=== PATIENT | female | born 1975 | race Caucasian/White ===

== ENCOUNTER 2023-02-06 18:33 | Emergency (ER) | payer MEDICAID, SELFPAY ==
[2023-02-06 18:37] VITALS: BP 156/85; PULSE 92; RESP 18; TEMP 36.8; O2SAT 98; BMI 48.8
--- NOTE | 2023-02-06 18:42 | XR_ITS ---
The [address] [address] Patient Name: ELIZABETH TRUJILLO MRN: [id number] date: 1975 Sex: F Assigned Patient Location: ER Current Patient Location: ED.MAIN Accession/Order Number: [id number] Exam Date: 02/06/2023 18:50 Report Date: 02/06/2023 19:11 At the request of: MARCO ZEE Procedure: XR ankle RT min 3V EXAM: XR ankle RT min 3V HISTORY: Twisted ankle COMPARISON: None. TECHNIQUE: 3 views FINDINGS: No visualized fracture, dislocation, subluxation or osseous lesion. Patient is obese. No gross soft tissue edema. Small osteophytes off the anterior aspect of the tibial plafond and. Reactive change of the dorsal aspect of the talar neck. Plantar calcaneal enthesophyte. XR/XR ankle RT min 3V IMPRESSION: No visualized acute abnormality Electronically authenticated by: THIERRY MÁRQUEZ Date: 02/06/2023 19:11
--- NOTE | 2023-02-06 19:33 | ED_ITS ---
HPI - Extremity Injury (Lower) General Chief Complaint: Extremity Injury, Lower Stated Complaint: RT ANKLE INJURY/FALL Time Seen by Provider: 02/06/23 19:07 Source: patient Mode of arrival: Wheelchair History of Present Illness HPI Narrative: The patient is coming to the ER with right ankle pain that started after she twisted her ankle getting out of the car, the patient denies any other injuries , the patient denies any other complaint but she was diagnosed recently with bronchitis The patient taking the prednisone at home Related Data Previous Rx's Medication Instructions Recorded acetaminophen 650 mg 650 mg PO Q8H PRN pain #20 tabs 02/06/23 tablet,extended release (Tylenol 8 Hour) Allergies Allergy/AdvReac Type Severity Reaction Status Date / Time Penicillins Allergy Severe Verified 02/06/23 18:41 Review of Systems ROS Status of ROS 10 or more systems reviewed and unremarkable except as noted in history and below Exam Narrative Exam Narrative: Nurses notes and vital signs reviewed and patient is not hypoxic. General: Well-appearing and in no apparent distress. Skin: Warm, dry, no pallor noted. No rash. Head: Normocephalic, atraumatic. Neck: Supple, non-tender. Eye: Pupils are equal, round and EOMI. No scleral icterus. Ears, Nose, Mouth, and Throat: TM are clear, no nasal mucosal hypertrophy. Oral mucosa is moist, no posterior oropharynx erythema, uvula is mid-line Cardiovascular: Regular Rate and Rhythm without murmur, gallop or rub. Respiratory: No accessory muscle use or respiratory distress. Lungs are clear to auscultation, no wheezing, rales or rhonchi Chest Wall: no tenderness Back: No midline thoracic or lumbar vertebral tenderness. No CVA tenderness Musculoskeletal: normal ROM, no calf or popliteal tenderness, no lower extremity edema/swelling, the patient have mild tenderness on palpation of the lateral malleolus on the right side and no tenderness on palpation of the Achil les tendon GI: Abdomen is soft, non-distended. Normal bowel sounds. No masses appreciated. No tenderness to palpation. No rebound, guarding, or rigidity noted. Neurological: A&O x4. No cranial nerve dysfunction observed. No truncal ataxia. Moves all extremities. Sensation intact. Psychiatric: Cooperative and interactive. Normal mood and affect. Constitutional Vital Signs, click to edit/add: Last Vital Signs Temp 98.3 F 02/06/23 18:37 Pulse 92 H 02/06/23 18:37 Resp 18 02/06/23 18:37 BP 156/85 H 02/06/23 18:37 Pulse Ox 98 02/06/23 18:37 Course Vital Signs Vital signs: Vital Signs Temperature 98.3 F 02/06/23 18:37 Pulse Rate 92 H 02/06/23 18:37 Respiratory Rate 18 02/06/23 18:37 Blood Pressure 156/85 H 02/06/23 18:37 Pulse Oximetry 98 02/06/23 18:37 Temperature 98.3 F 02/06/23 18:37 Pulse Rate 92 H 02/06/23 18:37 Respiratory Rate 18 02/06/23 18:37 Blood Pressure 156/85 H 02/06/23 18:37 Pulse Oximetry 98 02/06/23 18:37 MDM - Extremity Injury (Lower) MDM Narrative Medical decision making narrative: The patient x-ray of the right ankle shows no acute pathology the patient will be treated with Lenin wrap and rest and elevation with crutches and follow-up with podiatry as outpatient The patient is to follow up with primary care physician in next 2-3 days or to return to the emergency department should any of the signs or symptoms worsen or new symptoms develop. The patient agrees with the following Diagnosis and Treatment plan and the patient will be discharged home. Discharge Plan Discharge Chief Complaint: Extremity Injury, Lower Clinical Impression: Ankle sprain Patient Disposition: Home, Self-Care Time of Disposition Decision: 19:29 Condition: Good Mode of Transportation: Private Vehicle Prescriptions / Home Meds: New acetaminophen [Tylenol 8 Hour] 650 mg tablet extended release 650 mg PO Q8H PRN (Reason: pain) Qty: 20 0RF Instructions: Ankle Sprain (ED), Crutch Instructions (ED) Stand Alone Forms: Portal Instructions Referrals: Nakul Serrano DPM [Physician] - 1 week Discharge Date/Time: 02/06/23 20:04
[2023-02-06] MEDS: ACETAMINOPHEN 325 MG TABLET 650 MG PO (19:46)
== END 2023-02-06 20:04 | disposition home or self-care (01) ==
PROVIDERS: Emergency Provider Emergency Medicine
DX: S93.401A Sprain of unspecified ligament of right ankle, initial encounter (principal); X50.1XXA Overexertion from prolonged static or awkward postures, initial encounter
CPT/HCPCS: 73610; 99283

== ENCOUNTER 2023-02-08 08:37 | Outpatient (OUT) | payer MEDICAID, SELFPAY ==
--- NOTE | 2023-02-08 | XR_ITS ---
The [address] [address] Patient Name: ELIZABETH TRUJILLO MRN: [id number] date: 1975 Sex: F Assigned Patient Location: [facility] Current Patient Location: Accession/Order Number: [id number] Exam Date: 02/08/2023 13:30 Report Date: 02/09/2023 04:50 At the request of: NEO PAVON Procedure: XR ankle RT min 3V PROCEDURE: XR ankle RT min 3V, XR foot RT min 3V HISTORY: RIGHT ANKLE PAIN COMPARISON: XR ankle right 02/06/2023 FINDINGS: BONES:No fracture, dislocation, bone lesion. Small degenerative osteophyte along the anterior margin of the tibial plafond. Prominent calcaneal plantar spur. SOFT TISSUES:No visible soft tissue swelling. EFFUSION:None visible. OTHER: Negative. XR/XR ankle RT min 3V IMPRESSION: 1. No acute bone abnormality of the right ankle and foot. Minimal degenerative changes. Electronically authenticated by: KATRINA GEE Date: 02/09/2023 04:50
--- NOTE | 2023-02-08 | XR_ITS ---
The [address] [address] Patient Name: ELIZABETH TRUJILLO MRN: [id number] date: 1975 Sex: F Assigned Patient Location: [facility] Current Patient Location: Accession/Order Number: [id number] Exam Date: 02/08/2023 13:30 Report Date: 02/09/2023 04:50 At the request of: NEO PAVON Procedure: XR foot RT min 3V PROCEDURE: XR ankle RT min 3V, XR foot RT min 3V HISTORY: RIGHT ANKLE PAIN COMPARISON: XR ankle right 02/06/2023 FINDINGS: BONES:No fracture, dislocation, bone lesion. Small degenerative osteophyte along the anterior margin of the tibial plafond. Prominent calcaneal plantar spur. SOFT TISSUES:No visible soft tissue swelling. EFFUSION:None visible. OTHER: Negative. XR/XR foot RT min 3V IMPRESSION: 1. No acute bone abnormality of the right ankle and foot. Minimal degenerative changes. Electronically authenticated by: KATRINA GEE Date: 02/09/2023 04:50
== END 2023-02-08 08:38 | disposition home or self-care (01) ==
LOC: RAD 08:41
PROVIDERS: PCP Physician Assistant; Visit Provider Physician Assistant
DX: M25.571 Pain in right ankle and joints of right foot (principal); M79.671 Pain in right foot
CPT/HCPCS: 73610; 73630

== ENCOUNTER 2023-04-21 21:24 | Emergency (ER) | payer MEDICAID, SELFPAY ==
[2023-04-21 21:30] VITALS: BP 158/94; PULSE 74; RESP 16; TEMP 36.6; O2SAT 99; BMI 51.2
[2023-04-21 21:40] VITALS: PULSE 64
[2023-04-21 21:43] LABS: Glucometer 361 mg/dL (74-106)
--- NOTE | 2023-04-21 21:50 | ECG_ITS ---
The 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
--- NOTE | 2023-04-21 21:50 | CT_ITS ---
The [address] [address] Patient Name: ELIZABETH TRUJILLO MRN: [id number] date: 1975 Sex: F Assigned Patient Location: ER Current Patient Location: ER Accession/Order Number: [id number] Exam Date: 04/21/2023 22:28 Report Date: 04/21/2023 22:52 At the request of: VERA MARKER Procedure: CT head/brain wo con EXAM: CT head/brain wo con HISTORY: dizziness COMPARISON: CT brain 10/24/2016 TECHNIQUE: Axial CT scans through the head were obtained without IV contrast administration. Dose reduction techniques were achieved by using: automated exposure control and/or adjustment of mA and /or kV according to patient size and/or use of iterative reconstruction technique. FINDINGS: There is no acute intracranial hemorrhage or abnormal extra-axial fluid collection. No mass effect or midline shift is seen. There is no evidence of large acute territorial infarction. There is no hydrocephalus. To the limit of CT, the posterior fossa appears unremarkable. The calvaria is unremarkable. There is a 1.3 cm rounded well-defined scalp nodule, stable since 2017, likely an epidermal inclusion cyst. The visualized orbits show no abnormal mass. The visualized paranasal sinuses show no air-fluid level. Mastoid air cells are clear. CT/CT head/brain wo con IMPRESSION: No acute intracranial process. Electronically authenticated by: GISELLE FERNANDO Date: 04/21/2023 22:52
--- NOTE | 2023-04-21 21:50 | XR_ITS ---
The [address] [address] Patient Name: ELIZABETH TRUJILLO MRN: [id number] date: 1975 Sex: F Assigned Patient Location: ER Current Patient Location: ER Accession/Order Number: [id number] Exam Date: 04/21/2023 22:28 Report Date: 04/21/2023 22:58 At the request of: VERA MARKER Procedure: XR chest 1V EXAM: XR chest 1V HISTORY: ams COMPARISON: Chest radiographs dated 02/03/2021. TECHNIQUE: One view of the chest was obtained. FINDINGS: The cardiac silhouette is normal in size. The lungs are clear. There is no significant pneumothorax or pleural effusion. No acute osseous abnormality is seen. XR/XR chest 1V IMPRESSION: 1. No acute cardiopulmonary abnormality. Electronically authenticated by: Kyra ALMEIDA Date: 04/21/2023 22:58
--- NOTE | 2023-04-21 21:52 | ED_ITS ---
HPI - General Adult General Chief complaint: Dizziness Stated complaint: confusion Dizzness Time Seen by Provider: 04/21/23 21:38 Source: patient and family Mode of arrival: walk-in Limitations: no limitations History of Present Illness HPI narrative: This 47-year-old female, obese, diabetic with a history of kidney cancer who has had her left kidney removed with a resultant incisional hernia, history of tobacco use who is noncompliant with her diet is brought emergency department by her for evaluation of episodes of dizziness, ataxia and confusion since Tuesday, 6 days ago. Patient's states that he has seen her stumble at times and yesterday she states that she fell into a wall. He also states that she has been behaving oddly and he recently put a fish tank together and they were discussing the fish tank and then half an hour later he asked her about the fish tank repeating the conversation that they had just had. This was also 6 days ago. He states the symptoms have been coming and going. The patient admits that she gets up often to go to the bathroom approximately every 2 hours. She denies any chest pain or shortness of breath. He states that her right arm and right leg feel weak compared to the left. Denies any headache or blurred vision. She has no facial droop. Her appetite is been normal. She has not had any nausea vomiting or diarrhea. Related Data Home Medications Medication Instructions Recorded Confirmed glimepiride 2 mg tablet mg 04/21/23 Previous Rx's Medication Instructions Recorded acetaminophen 650 mg 650 mg PO Q8H PRN pain #20 tabs 02/06/23 tablet,extended release (Tylenol 8 Hour) Allergies Allergy/AdvReac Type Severity Reaction Status Date / Time Penicillins Allergy Severe Verified 04/21/23 21:36 Review of Systems ROS Status of ROS 10 or more systems reviewed and unremarkable except as noted in history and below [facility] PFS Social History Smoking status: Current every day smoker Exam Narrative Exam Narrative: Nurses note and vital signs reviewed and patient is not hypoxic. Blood pressure is elevated at 158/94 General: Alert, obese, non-toxic Patient female resting comfortably on the stret lopez, GCS 15, no respiratory distress Skin: Warm, dry, no pallor noted. There is no rash noted. Head: Normocephalic, atraumatic Eye: Normal conjunctiva, no drainage, EOMI. PERRL, No diplopia noted, vision is grossly intact, no visual field cut appreciated Ears, Nose, Mouth, and Throat: oral mucosa is moist. Nares patent. Mouth without vesicles. tongue and uvula midline, no facial droop Cardiovascular: Regular Rate and Rhythm S1S2, no murmurs, rubs or gallops apprectiated Respiratory: Patient is in no distress, no accessory muscle use, lungs are clear to auscultation, no wheezing, rales or rhonchi Back: non-tender, no CVA tenderness bilaterally to percussion. GI: Normal bowel sounds, no tenderness to palpation, no masses appreciated. No rebound, guarding, or rigidity noted. 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, upper and lower extremity strength and sensation is intact, Psychiatric: Cooperative Constitutional Vital Signs, click to edit/add: Last Vital Signs Temp 97.9 F 04/21/23 21:30 Pulse 74 04/21/23 21:30 Resp 16 04/21/23 21:30 BP 158/94 H 04/21/23 21:30 Pulse Ox 99 04/21/23 21:30 O2 Del Method Room Air 04/21/23 21:30 Course Vital Signs Vital signs: Vital Signs Temperature 97.9 F 04/21/23 21:30 Pulse Rate 74 04/21/23 21:30 Respiratory Rate 16 04/21/23 21:30 Blood Pressure 158/94 H 04/21/23 21:30 Pulse Oximetry 99 04/21/23 21:30 Oxygen Delivery Method Room Air 04/21/23 21:30 Temperature 97.9 F 04/21/23 21:30 Pulse Rate 74 04/21/23 21:30 Respiratory Rate 16 04/21/23 21:30 Blood Pressure 158/94 H 04/21/23 21:30 Pulse Oximetry 99 04/21/23 21:30 Oxygen Delivery Method Room Air 04/21/23 21:30 Medical Decision Making Lab Data Labs: Lab Results 04/21/23 04/21/23 04/21/23 Range/Units 21:41 22:50 23:08 WBC 10.1 (4.0-11.0) 10^3/uL RBC 4.61 (4.20-5.40) 10^6/uL Hgb 12.5 (12.0-16.0) g/dL Hct 38.1 (36.0-48.0) % MCV 82.6 (81.0-99.0) fL MCH 27.1 (26.7-34.0) pg MCHC 32.8 (29.9-35.2) g/dL RDW 14.4 (11.0-15.0) % Plt Count 135 L (150-450) 10^3/uL MPV 12.4 (9.5-13.5) fL Neut % (Auto) 53.8 (43.0-75.0) % Lymph % (Auto) 34.7 (20.5-60.0) % [place] % (Auto) 8.2 (1.7-12.0) % Eos % (Auto) 2.3 (0.9-7.0) % Baso % (Auto) 0.5 (0.2-2.0) % Neut # (Auto) 5.4 (1.4-6.5) 10^3/uL Lymph # (Auto) 3.5 (1.2-3.8) 10^3/uL [place] # (Auto) 0.8 (0.3-0.8) 10^3/uL Eos # (Auto) 0.2 (0.0-0.7) 10^3/uL Baso # (Auto) 0.1 (0.0-0.1) 10^3/uL Abs Immat Gran (auto) 0.05 H (0.00-0.03) 10^3/uL Imm/Tot Granulo (auto) 0.5 (0.0-0.5) % Sodium 131 L (136-145) mmol/L Potassium 4.0 (3.5-5.1) mmol/L Chloride 99 (98-107) mmol/L Carbon Dioxide 24.6 (21.0-32.0) mmol/L Anion Gap 11.4 BUN 14.0 (7.0-18.0) mg/dL Creatinine 0.90 (0.55-1.02) mg/dL Est GFR ( Amer) >60 (>=60) Est GFR (Non-Af Amer) >60 (>=60) BUN/Creatinine Ratio 15.6 Glucose 303 H (74-106) mg/dL Lactate 1.6 (0.4-2.0) mmol/L Calcium 8.3 L (8.5-10.1) mg/dL Total Bilirubin 0.2 (0.2-1.0) mg/dL AST 20 (15-37) U/L ALT 24 (14-59) U/L Alkaline Phosphatase 62 (46-116) U/L Troponin I High Sens 5.1 (4.0-51.3) pg/mL Total Protein 6.9 (6.4-8.2) g/dL Albumin 3.0 L (3.4-5.0) g/dL Globulin 3.9 g/dL Albumin/Globulin Ratio 0.8 Urine Color Lt. yellow (YELLOW) Urine Clarity Clear (CLEAR) Urine pH 6.0 (5.0-9.0) Ur Specific [place] 1.010 (1.005-1.025) Urine Protein Negative (NEG/TRACE) mg/dL Urine Glucose (UA) >=1000 A (NEGATIVE) mg/dL Urine Ketones Negative (NEGATIVE) mg/dL Urine Occult Blood Negative (NEGATIVE) Urine Nitrite Negative (NEGATIVE) Urine Bilirubin Negative (NEGATIVE) Urine Urobilinogen 0.2 (0.2-1.0) EU/dL Ur Leukocyte Esterase Negative (NEGATIVE) Urine RBC None seen (0-2) #/HPF Urine WBC 0-2 A (NONE SEEN) #/HPF Ur Squamous Epith Cells Few A (NONE/RARE) #/LPF Urine Crystals None seen (None Seen) #/HPF Urine Bacteria None seen (NONE SEEN) #/HPF Urine Casts None seen (NONE SEEN) #/LPF Urine Mucus None seen (NONE SEEN) Urine Opiates Screen Negative (NEGATIVE) Ur Buprenorphine Scrn Negative (NEGATIVE) Ur Oxycodone Screen Negative (NEGATIVE) Urine Methadone Screen Negative (NEGATIVE) Ur Barbiturates Screen Negative (NEGATIVE) U Tricyclic Antidepress Negative (NEGATIVE) Ur Phencyclidine Scrn Negative (NEGATIVE) Ur Amphetamines Screen Negative (NEGATIVE) U Methamphetamines Scrn Negative (NEGATIVE) U Benzodiazepines Scrn Negative (NEGATIVE) Urine Cocaine Screen Negative (NEGATIVE) U Cannabinoids Screen Negative (NEGATIVE) SARS-CoV-2 (PCR) (NEGATIVE) POC Glucose 361 H (74-106) mg/dL 04/21/23 Range/Units 23:25 WBC (4.0-11.0) 10^3/uL RBC (4.20-5.40) 10^6/uL Hgb (12.0-16.0) g/dL Hct (36.0-48.0) % MCV (81.0-99.0) fL MCH (26.7-34.0) pg MCHC (29.9-35.2) g/dL RDW (11.0-15.0) % Plt Count (150-450) 10^3/uL MPV (9.5-13.5) fL Neut % (Auto) (43.0-75.0) % Lymph % (Auto) (20.5-60.0) % [place] % (Auto) (1.7-12.0) % Eos % (Auto) (0.9-7.0) % Baso % (Auto) (0.2-2.0) % Neut # (Auto) (1.4-6.5) 10^3/uL Lymph # (Auto) (1.2-3.8) 10^3/uL [place] # (Auto) (0.3-0.8) 10^3/uL Eos # (Auto) (0.0-0.7) 10^3/uL Baso # (Auto) (0.0-0.1) 10^3/uL Abs Immat Gran (auto) (0.00-0.03) 10^3/uL Imm/Tot Granulo (auto) (0.0-0.5) % Sodium (136-145) mmol/L Potassium (3.5-5.1) mmol/L Chloride (98-107) mmol/L Carbon Dioxide (21.0-32.0) mmol/L Anion Gap BUN (7.0-18.0) mg/dL Creatinine (0.55-1.02) mg/dL Est GFR ( Amer) (>=60) Est GFR (Non-Af Amer) (>=60) BUN/Creatinine Ratio Glucose (74-106) mg/dL Lactate (0.4-2.0) mmol/L Calcium (8.5-10.1) mg/dL Total Bilirubin (0.2-1.0) mg/dL AST (15-37) U/L ALT (14-59) U/L Alkaline Phosphatase (46-116) U/L Troponin I High Sens (4.0-51.3) pg/mL Total Protein (6.4-8.2) g/dL Albumin (3.4-5.0) g/dL Globulin g/dL Albumin/Globulin Ratio Urine Color (YELLOW) Urine Clarity (CLEAR) Urine pH (5.0-9.0) Ur Specific [place] (1.005-1.025) Urine Protein (NEG/TRACE) mg/dL Urine Glucose (UA) (NEGATIVE) mg/dL Urine Ketones (NEGATIVE) mg/dL Urine Occult Blood (NEGATIVE) Urine Nitrite (NEGATIVE) Urine Bilirubin (NEGATIVE) Urine Urobilinogen (0.2-1.0) EU/dL Ur Leukocyte Esterase (NEGATIVE) Urine RBC (0-2) #/HPF Urine WBC (NONE SEEN) #/HPF Ur Squamous Epith Cells (NONE/RARE) #/LPF Urine Crystals (None Seen) #/HPF Urine Bacteria (NONE SEEN) #/HPF Urine Casts (NONE SEEN) #/LPF Urine Mucus (NONE SEEN) Urine Opiates Screen (NEGATIVE) Ur Buprenorphine Scrn (NEGATIVE) Ur Oxycodone Screen (NEGATIVE) Urine Methadone Screen (NEGATIVE) Ur Barbiturates Screen (NEGATIVE) U Tricyclic Antidepress (NEGATIVE) Ur Phencyclidine Scrn (NEGATIVE) Ur Amphetamines Screen (NEGATIVE) U Methamphetamines Scrn (NEGATIVE) U Benzodiazepines Scrn (NEGATIVE) Urine Cocaine Screen (NEGATIVE) U Cannabinoids Screen (NEGATIVE) SARS-CoV-2 (PCR) Negative (NEGATIVE) POC Glucose (74-106) mg/dL Discharge Plan Discharge Chief Complaint: Dizziness Clinical Impression: Mental status change resolved Patient Disposition: Home, Self-Care Time of Disposition Decision: 01:34 Prescriptions / Home Meds: No Action acetaminophen [Tylenol 8 Hour] 650 mg tablet extended release 650 mg PO Q8H PRN (Reason: pain) Qty: 20 0RF glimepiride 2 mg tablet Instructions: Vertigo (ED), Acute Delirium (ED), Dizziness (ED) Stand Alone Forms: Portal Instructions Referrals: Physician,Non-Staff, MD [Primary Care Provider] - 1 week ELISA DARLING [Physician] - As soon as possible
[2023-04-21] MEDS: 0.9 % SODIUM CHLORIDE 500 ML IV (23:24)
[2023-04-21 23:36] LABS: Bilirubin Urine NEGATIVE (NEGATIVE); Blood Urine NEGATIVE (NEGATIVE); Clarity Urine CLEAR (CLEAR); Color Urine LT. YELLOW (YELLOW); Glucose Urine UA >=1000 mg/dL (NEGATIVE); Ketones Urine NEGATIVE (NEGATIVE); Leukocyte Esterase Urine NEGATIVE (NEGATIVE); Nitrite Urine NEGATIVE (NEGATIVE); Protein Urine NEGATIVE (NEG/TRACE); Urobilinogen Urine 0.2 EU/dL (0.2-1.0)
[2023-04-21 23:38] LABS: Basophils Absolute Auto 0.1 10^3/uL (0.0-0.1); Basophils Percent Auto 0.5 % (0.2-2.0); Eosinophils Absolute Auto 0.2 10^3/uL (0.0-0.7); Eosinophils Percent Auto 2.3 % (0.9-7.0); Hematocrit 38.1 % (36.0-48.0); Hemoglobin 12.5 g/dL (12.0-16.0); Immature Granulocytes Abs Auto 0.05 10^3/uL (0.00-0.03); Immature Granulocytes Pct Auto 0.5 % (0.0-0.5); Lymphocytes Absolute Auto 3.5 10^3/uL (1.2-3.8); Lymphocytes Percent Auto 34.7 % (20.5-60.0); Mean Corpuscular HGB Conc 32.8 g/dL (29.9-35.2); Mean Corpuscular Hemoglobin 27.1 pg (26.7-34.0); Mean Corpuscular Volume 82.6 fL (81.0-99.0); Mean Platelet Volume 12.4 fL (9.5-13.5); Monocytes Absolute Auto 0.8 10^3/uL (0.3-0.8); Monocytes Percent Auto 8.2 % (1.7-12.0); Neutrophils Absolute Auto 5.4 10^3/uL (1.4-6.5); Neutrophils Percent Auto 53.8 % (43.0-75.0); Red Blood Count 4.61 10^6/uL (4.20-5.40); Red Cell Distribution Width 14.4 % (11.0-15.0); White Blood Count 10.1 10^3/uL (4.0-11.0)
[2023-04-21 23:42] LABS: SARS-CoV-2 Ag NEGATIVE (NEGATIVE)
[2023-04-21 23:46] LABS: Amphetamine Screen Urine NEGATIVE (NEGATIVE); Barbiturates Screen Urine NEGATIVE (NEGATIVE); Benzodiazepines Screen Urine NEGATIVE (NEGATIVE); Buprenorphine Screen Urine NEGATIVE (NEGATIVE); Cannabinoid Screen Urine NEGATIVE (NEGATIVE); Cocaine Screen Urine NEGATIVE (NEGATIVE); Methadone Screen Urine NEGATIVE (NEGATIVE); Methamphetamines Screen Urine NEGATIVE (NEGATIVE); Opiate Screen Urine NEGATIVE (NEGATIVE); Oxycodone Screen Urine NEGATIVE (NEGATIVE); Phencyclidine Screen Urine NEGATIVE (NEGATIVE); Tricyclic Antidepressant Urine NEGATIVE (NEGATIVE)
[2023-04-21 23:52] LABS: Bacteria Urine NONE SEEN #/HPF (NONE SEEN); Crystals Seen? None Seen #/HPF (None Seen); Mucus Urine NONE SEEN (NONE SEEN); RBC Urine NONE SEEN #/HPF (0-2); Squamous Epithelial Cell Urine FEW #/LPF (NONE/RARE); WBC Urine 0-2 #/HPF (NONE SEEN)
[2023-04-21 23:52] LABS: Lactate/Lactic Acid 1.6 mmol/L (0.4-2.0)
[2023-04-21 23:53] LABS: Alanine Aminotransferase 24 U/L (14-59); Albumin Globulin Ratio 0.8; Alkaline Phosphatase 62 U/L (46-116); Anion Gap 11.4; Aspartate Amino Transferase 20 U/L (15-37); BUN Creatinine Ratio 15.6; Bilirubin Total 0.2 mg/dL (0.2-1.0); Calcium 8.3 mg/dL (8.5-10.1); Carbon Dioxide 24.6 mmol/L (21.0-32.0); Chloride 99 mmol/L (98-107); Estimated GFR (African America >60 (>=60); Estimated GFR (Non-African Ame >60 (>=60); Globulin 3.9 g/dL; Glucose 303 mg/dL (74-106); Sodium 131 mmol/L (136-145); Total Protein 6.9 g/dL (6.4-8.2); Troponin I High Sensitivity 5.1 pg/mL (4.0-51.3)
[2023-04-21 23:53] LABS: Cast Seen? NONE SEEN #/LPF (NONE SEEN)
[2023-04-22 00:10] LABS: Platelet Count 135 10^3/uL (150-450)
--- NOTE | 2023-04-22 01:38 | ED.DIZZY1 ---
HPI - Dizziness General Chief Complaint: Dizziness Stated Complaint: confusion Dizzness Time Seen by Provider: 04/21/23 21:38 Source: patient and family Mode of arrival: walk-in Limitations: no limitations History of Present Illness HPI Narrative: Duplicate chart -please disregard Related Data Home Medications Medication Instructions Recorded Confirmed glimepiride 2 mg tablet mg 04/21/23 Previous Rx's Medication Instructions Recorded acetaminophen 650 mg 650 mg PO Q8H PRN pain #20 tabs 02/06/23 tablet,extended release (Tylenol 8 Hour) Allergies Allergy/AdvReac Type Severity Reaction Status Date / Time Penicillins Allergy Severe Verified 04/21/23 21:36 PFSH PFSH Social History Smoking status: Current every day smoker Exam Constitutional Vital Signs, click to edit/add: Last Vital Signs Temp 97.9 F 04/21/23 21:30 Pulse 74 04/21/23 21:30 Resp 16 04/21/23 21:30 BP 158/94 H 04/21/23 21:30 Pulse Ox 99 04/21/23 21:30 O2 Del Method Room Air 04/21/23 21:30 Course Vital Signs Vital signs: Vital Signs Temperature 97.9 F 04/21/23 21:30 Pulse Rate 74 04/21/23 21:30 Respiratory Rate 16 04/21/23 21:30 Blood Pressure 158/94 H 04/21/23 21:30 Pulse Oximetry 99 04/21/23 21:30 Oxygen Delivery Method Room Air 04/21/23 21:30 Temperature 97.9 F 04/21/23 21:30 Pulse Rate 74 04/21/23 21:30 Respiratory Rate 16 04/21/23 21:30 Blood Pressure 158/94 H 04/21/23 21:30 Pulse Oximetry 99 04/21/23 21:30 Oxygen Delivery Method Room Air 04/21/23 21:30 MDM - Dizziness MDM Narrative Medical decision making narrative: Duplicate chart-please disregard and refer to full chart from same date and ED visit Lab Data Labs: Lab Results 04/21/23 04/21/23 04/21/23 Range/Units 21:41 22:50 23:08 WBC 10.1 (4.0-11.0) 10^3/uL RBC 4.61 (4.20-5.40) 10^6/uL Hgb 12.5 (12.0-16.0) g/dL Hct 38.1 (36.0-48.0) % MCV 82.6 (81.0-99.0) fL MCH 27.1 (26.7-34.0) pg MCHC 32.8 (29.9-35.2) g/dL RDW 14.4 (11.0-15.0) % Plt Count 135 L (150-450) 10^3/uL MPV 12.4 (9.5-13.5) fL Neut % (Auto) 53.8 (43.0-75.0) % Lymph % (Auto) 34.7 (20.5-60.0) % [place] % (Auto) 8.2 (1.7-12.0) % Eos % (Auto) 2.3 (0.9-7.0) % Baso % (Auto) 0.5 (0.2-2.0) % Neut # (Auto) 5.4 (1.4-6.5) 10^3/uL Lymph # (Auto) 3.5 (1.2-3.8) 10^3/uL [place] # (Auto) 0.8 (0.3-0.8) 10^3/uL Eos # (Auto) 0.2 (0.0-0.7) 10^3/uL Baso # (Auto) 0.1 (0.0-0.1) 10^3/uL Abs Immat Gran (auto) 0.05 H (0.00-0.03) 10^3/uL Imm/Tot Granulo (auto) 0.5 (0.0-0.5) % Sodium 131 L (136-145) mmol/L Potassium 4.0 (3.5-5.1) mmol/L Chloride 99 (98-107) mmol/L Carbon Dioxide 24.6 (21.0-32.0) mmol/L Anion Gap 11.4 BUN 14.0 (7.0-18.0) mg/dL Creatinine 0.90 (0.55-1.02) mg/dL Est GFR ( Amer) >60 (>=60) Est GFR (Non-Af Amer) >60 (>=60) BUN/Creatinine Ratio 15.6 Glucose 303 H (74-106) mg/dL Lactate 1.6 (0.4-2.0) mmol/L Calcium 8.3 L (8.5-10.1) mg/dL Total Bilirubin 0.2 (0.2-1.0) mg/dL AST 20 (15-37) U/L ALT 24 (14-59) U/L Alkaline Phosphatase 62 (46-116) U/L Troponin I High Sens 5.1 (4.0-51.3) pg/mL Total Protein 6.9 (6.4-8.2) g/dL Albumin 3.0 L (3.4-5.0) g/dL Globulin 3.9 g/dL Albumin/Globulin Ratio 0.8 Urine Color Lt. yellow (YELLOW) Urine Clarity Clear (CLEAR) Urine pH 6.0 (5.0-9.0) Ur Specific [place] 1.010 (1.005-1.025) Urine Protein Negative (NEG/TRACE) mg/dL Urine Glucose (UA) >=1000 A (NEGATIVE) mg/dL Urine Ketones Negative (NEGATIVE) mg/dL Urine Occult Blood Negative (NEGATIVE) Urine Nitrite Negative (NEGATIVE) Urine Bilirubin Negative (NEGATIVE) Urine Urobilinogen 0.2 (0.2-1.0) EU/dL Ur Leukocyte Esterase Negative (NEGATIVE) Urine RBC None seen (0-2) #/HPF Urine WBC 0-2 A (NONE SEEN) #/HPF Ur Squamous Epith Cells Few A (NONE/RARE) #/LPF Urine Crystals None seen (None Seen) #/HPF Urine Bacteria None seen (NONE SEEN) #/HPF Urine Casts None seen (NONE SEEN) #/LPF Urine Mucus None seen (NONE SEEN) Urine Opiates Screen Negative (NEGATIVE) Ur Buprenorphine Scrn Negative (NEGATIVE) Ur Oxycodone Screen Negative (NEGATIVE) Urine Methadone Screen Negative (NEGATIVE) Ur Barbiturates Screen Negative (NEGATIVE) U Tricyclic Antidepress Negative (NEGATIVE) Ur Phencyclidine Scrn Negative (NEGATIVE) Ur Amphetamines Screen Negative (NEGATIVE) U Methamphetamines Scrn Negative (NEGATIVE) U Benzodiazepines Scrn Negative (NEGATIVE) Urine Cocaine Screen Negative (NEGATIVE) U Cannabinoids Screen Negative (NEGATIVE) SARS-CoV-2 (PCR) (NEGATIVE) SARS-CoV-2 RNA ([place]) (NOT DETECTE) POC Glucose 361 H (74-106) mg/dL 10/26/23 Range/Units 23:25 WBC (4.0-11.0) 10^3/uL RBC (4.20-5.40) 10^6/uL Hgb (12.0-16.0) g/dL Hct (36.0-48.0) % MCV (81.0-99.0) fL MCH (26.7-34.0) pg MCHC (29.9-35.2) g/dL RDW (11.0-15.0) % Plt Count (150-450) 10^3/uL MPV (9.5-13.5) fL Neut % (Auto) (43.0-75.0) % Lymph % (Auto) (20.5-60.0) % [place] % (Auto) (1.7-12.0) % Eos % (Auto) (0.9-7.0) % Baso % (Auto) (0.2-2.0) % Neut # (Auto) (1.4-6.5) 10^3/uL Lymph # (Auto) (1.2-3.8) 10^3/uL [place] # (Auto) (0.3-0.8) 10^3/uL Eos # (Auto) (0.0-0.7) 10^3/uL Baso # (Auto) (0.0-0.1) 10^3/uL Abs Immat Gran (auto) (0.00-0.03) 10^3/uL Imm/Tot Granulo (auto) (0.0-0.5) % Sodium (136-145) mmol/L Potassium (3.5-5.1) mmol/L Chloride (98-107) mmol/L Carbon Dioxide (21.0-32.0) mmol/L Anion Gap BUN (7.0-18.0) mg/dL Creatinine (0.55-1.02) mg/dL Est GFR ( Amer) (>=60) Est GFR (Non-Af Amer) (>=60) BUN/Creatinine Ratio Glucose (74-106) mg/dL Lactate (0.4-2.0) mmol/L Calcium (8.5-10.1) mg/dL Total Bilirubin (0.2-1.0) mg/dL AST (15-37) U/L ALT (14-59) U/L Alkaline Phosphatase (46-116) U/L Troponin I High Sens (4.0-51.3) pg/mL Total Protein (6.4-8.2) g/dL Albumin (3.4-5.0) g/dL Globulin g/dL Albumin/Globulin Ratio Urine Color (YELLOW) Urine Clarity (CLEAR) Urine pH (5.0-9.0) Ur Specific [place] (1.005-1.025) Urine Protein (NEG/TRACE) mg/dL Urine Glucose (UA) (NEGATIVE) mg/dL Urine Ketones (NEGATIVE) mg/dL Urine Occult Blood (NEGATIVE) Urine Nitrite (NEGATIVE) Urine Bilirubin (NEGATIVE) Urine Urobilinogen (0.2-1.0) EU/dL Ur Leukocyte Esterase (NEGATIVE) Urine RBC (0-2) #/HPF Urine WBC (NONE SEEN) #/HPF Ur Squamous Epith Cells (NONE/RARE) #/LPF Urine Crystals (None Seen) #/HPF Urine Bacteria (NONE SEEN) #/HPF Urine Casts (NONE SEEN) #/LPF Urine Mucus (NONE SEEN) Urine Opiates Screen (NEGATIVE) Ur Buprenorphine Scrn (NEGATIVE) Ur Oxycodone Screen (NEGATIVE) Urine Methadone Screen (NEGATIVE) Ur Barbiturates Screen (NEGATIVE) U Tricyclic Antidepress (NEGATIVE) Ur Phencyclidine Scrn (NEGATIVE) Ur Amphetamines Screen (NEGATIVE) U Methamphetamines Scrn (NEGATIVE) U Benzodiazepines Scrn (NEGATIVE) Urine Cocaine Screen (NEGATIVE) U Cannabinoids Screen (NEGATIVE) SARS-CoV-2 (PCR) Negative (NEGATIVE) SARS-CoV-2 RNA ([place]) Not detected (NOT DETECTE) POC Glucose (74-106) mg/dL Discharge Plan Discharge Chief Complaint: Dizziness Clinical Impression: Mental status change resolved Patient Disposition: Home, Self-Care Time of Disposition Decision: 01:34 Prescriptions / Home Meds: No Action acetaminophen [Tylenol 8 Hour] 650 mg tablet extended release 650 mg PO Q8H PRN (Reason: pain) Qty: 20 0RF glimepiride 2 mg tablet Instructions: Vertigo (ED), Acute Delirium (ED), Dizziness (ED) Stand Alone Forms: Portal Instructions Referrals: ELISA DARLING [Physician] - As soon as possible Physician,Non-Staff, [Primary Care Provider] - 1 week Discharge Date/Time: 04/22/23 01:49
[2023-04-22 15:59] LABS: SARS-CoV-2 NAA NOT DETECTED (NOT DETECTE)
== END 2023-04-22 01:49 | disposition home or self-care (01) ==
PROVIDERS: Emergency Provider Emergency Medicine
DX: R41.82 Altered mental status, unspecified (principal); Z20.822 Contact with and (suspected) exposure to COVID-19; F17.210 Nicotine dependence, cigarettes, uncomplicated; Z79.899 Other long term (current) drug therapy; E11.9 Type 2 diabetes mellitus without complications; E66.9 Obesity, unspecified; Z85.528 Personal history of other malignant neoplasm of kidney; Z90.5 Acquired absence of kidney; Z91.81 History of falling; Z68.43 Body mass index [BMI] 50.0-59.9, adult
CPT/HCPCS: 36415; 36416; 70450; 71045; 80053; 80307; 81001; 83605; 84484; 85025; 87635; 87811; 93005; 99285